=== PATIENT | female | born 1960 | race Caucasian/White ===

== ENCOUNTER 2018-05-01 21:54 | Inpatient (IN) | payer BC ==
[~2018-05-01] VITALS: Ht 152.4 cm; Wt 59.4 kg
[2018-05-01] MEDS ORDERED: SOD CHLORIDE 0.9% 500 ML IV STA (23:39)
--- NOTE | 2018-05-02 05:28 | ERD ---
ER Documentation Chief Complaint Chief Complaint OVARIAN CA PT. CHEMO 2 WEEKS AGO. ALTERED PER FAMILY HPI This is a 57-year-old female who comes in with complaints of alteration of mental status per family. Apparently the last 2 weeks she has been getting progressively more altered. Patient had chemo therapy for ovarian cancer. Today they found her in the ER and she had defecated herself and taken off her clothes. Patient herself cannot provide any relevant history. History is strictly per family at the bedside. ROS All systems reviewed and are negative except as per history of present illness. Allergies Allergies: Coded Allergies: No Known Allergy (Unverified , 05/02/18) PMhx/Soc History of Surgery: Yes (thyroidectomy) Hx Cardiac Disorders: Yes (HTN) Hx Miscellaneous Medical Probl: Yes (DM, ovarian CA) Hx Alcohol Use: No Hx Substance Use: No Hx Tobacco Use: No Smoking Status: Never smoker Physical Exam Vitals Vital Signs Date Temp Pulse Resp B/P (MAP) Pulse Ox O2 O2 Flow FiO2 Time Delivery Rate 05/02/18 112 19 155/117 99 Room Air 04:40 (130) 05/02/18 100 19 157/76 99 Room Air 03:30 (103) 05/02/18 89 13 151/75 100 Room Air 00:56 (100) 05/02/18 Nasal 2 00:46 Cannula 05/02/18 97.5 97 14 149/73 97 Room Air 00:29 (98) 05/01/18 158/74 23:21 (102) 05/01/18 99.0 96 18 189/80 100 22:00 (116) Physical Exam Const: No acute distress Head: Atraumatic Eyes: Normal Conjunctiva ENT: Normal External Ears, Nose and Mouth. Neck: Full range of motion. No meningismus. Resp: Clear to auscultation bilaterally Cardio: Regular rate and rhythm, no murmurs Abd: Soft, non tender, non distended. Normal bowel sounds Skin: No petechiae or rashes Back: No midline or flank tenderness Ext: No cyanosis, or edema Neur: Awake and alert Psych: Normal Mood and Affect Result Diagram: 05/01/18 1714 05/01/18 2568 Results 24 hrs Laboratory Tests Test 05/01/18 23:21 05/01/18 23:59 05/02/18 00:37 3/13/19 00:43 Bedside Glucose 105 mg/dL 104 mg/dL White Blood Count 4.9 10^3/ul Red Blood Count 3.41 10^6/ul Hemoglobin 9.4 g/dl Hematocrit 30.0 % Mean Corpuscular 88.0 fl Volume Mean Corpuscular 27.6 pg Hemoglobin Mean Corpuscular 31.3 g/dl Hemoglobin Concent Red Cell 16.1 % Distribution Width Platelet Count 131 10^3/UL Mean Platelet 9.2 fl Volume Immature 0.400 % Granulocytes % Neutrophils % 67.8 % Lymphocytes % 8.6 % Monocytes % 18.5 % Eosinophils % 3.9 % Basophils % 0.8 % Nucleated Red 0.0 /100WBC Blood Cells % Immature 0.020 10^3/ul Granulocytes # Neutrophils # 3.3 10^3/ul Lymphocytes # 0.4 10^3/ul Monocytes # 0.9 10^3/ul Eosinophils # 0.2 10^3/ul Basophils # 0.0 10^3/ul Nucleated Red 0.0 10^3/ul Blood Cells # Urine Color YELLOW Urine Clarity CLEAR Urine pH 6.0 Urine Specific 1.016 [place] Urine Ketones TRACE mg/dL Urine Nitrite NEGATIVE mg/dL Urine Bilirubin NEGATIVE mg/dL Urine Urobilinogen 2+ mg/dL Urine Leukocyte NEGATIVE Katja/ul Esterase Urine Hemoglobin NEGATIVE mg/dL Urine Glucose 2+ mg/dL Urine Total NEGATIVE mg/dl Protein Sodium Level 144 mmol/L Potassium Level 3.9 mmol/L Chloride Level 111 mmol/L Carbon Dioxide 19 mmol/L Level Anion Gap 14 Blood Urea 20 mg/dl Nitrogen Creatinine 0.81 mg/dl Est Glomerular > 60 mL/min Filtrat Rate mL/min Glucose Level 112 mg/dl Calcium Level 9.6 mg/dl Total Bilirubin 0.8 mg/dl Direct Bilirubin 0.00 mg/dl Indirect Bilirubin 0.8 mg/dl Aspartate Amino 34 IU/L Transf (AST/SGOT) Alanine 27 IU/L Aminotransferase ( ALT/SGPT) Alkaline 298 IU/L Phosphatase Troponin I < 0.012 ng/ml Total Protein 8.1 g/dl Albumin 4.1 g/dl Globulin 4.00 g/dl Albumin/Globulin 1.02 Ratio Salicylates Level < 1.0 mg/dl Urine Opiates Negative Screen Acetaminophen < 10.0 ug/ml Level Urine Barbiturates Negative Urine Amphetamines Negative Screen Urine Negative Benzodiazepines Screen Urine Cocaine Negative Screen Urine Cannabinoids Negative Ethyl Alcohol < 10.0 mg/dl Level POC Venous Lactate 2.3 mmol/L Test 05/02/18 03:23 POC Venous Lactate 2.4 mmol/L Current Medications Medications Dose Sig/Sant[place] Start Time Status Last (Trade) Ordered Route PRN Stop Time Admin Dose Reason Admin Sodium 500 ml @ Q1H STAT 05/01/18 DC 05/02/18 Chloride 500 mls/hr IV 23:39 00:19 05/02/18 00:38 IV Flush 3 ml PER 05/02/18 (NS 3 ml) PROTOCOL IV 05:30 Ondansetron 4 mg Q6H PRN 05/02/18 HCl (Zofran IV 05:30 Inj) NAUSEA/VOMITI NG 650 mg Q6H PRN 05/02/18 Acetaminophen PO .PAIN 1-3 05:30 (Tylenol OR TEMP Tab) Heparin 5,000 unit Q12 SC 05/02/18 Sodium 09:00 (Porcine) (Heparin (5000 Units/1ml)) Albuterol/ 3 ml Q2H RESP 05/02/18 Ipratropium THERAPY PRN 05:30 (Duoneb) HHN SHORTNESS OF BREATH Procedures/MDM Emergency department course: Patient seen and evaluated triage nurse. Placed in bed from evaluation. Placed on continuous cardiac monitoring. Had a stat altered mental status workup. Serial examinations in the ER remained stable. Diagnostic data: EKG: Rate/Rhythm: [Normal Sinus Rhythm] QRS, ST, T-waves: [No changes consistent w/ acute ischemia] Impression: [No evidence of ischemia or arrhythmia] Chest X-ray 1V Interpreted by me: Soft Tissue: No acute abnormali ties Bones: No acute abnormalities Mediastinum/Cardiac Silhouette/Lungs: [No acute abnormalities] Rhythm strip: Rate/Rhythm: Normal Sinus Rhythm Impression: No evidence of ischemia or arrhythmia CT of the head read as negative by the radiologist. Please see full dictation full report Medical decision making: This a 57-year-old female with acute alteration in mental status that is really more subacute and progressive over the past 2 weeks . No evidence of intracranial abnormality. This is likely secondary to toxic encephalopathy possibly from chemotherapy. Patient will be admitted to telemetric setting for further evaluation and management to hospitalist physician Departure Diagnosis: Primary Impression: Altered level of consciousness Condition: Serious JOSEPHINE SALEH May 02, 2018 05:28
[2018-05-02] MEDS ORDERED: ALBUTEROL/IPRATROPIUM (NEB) 3 ML AMP HHN PRN (05:30)
[2018-05-02] MEDS ORDERED: ONDANSETRON 4 MG INJ IV PRN (05:30)
[2018-05-02] MEDS ORDERED: NACL 0.9% 3 ML SYG IV SCH (05:30)
[2018-05-02] MEDS ORDERED: ACETAMINOPHEN 325 MG TAB PO PRN (05:30)
--- NOTE | 2018-05-02 07:10 | HP ---
Date/Time of Note Date/Time of Note DATE: 05/02/18 TIME: 07:05 Assessment/Plan VTE Prophylaxis Pharmacological prophylaxis: heparin Lines/Catheters IV Catheter Type (from Nrsg): Peripheral IV Assessment/Plan Assessment/Plan 1. Altered mentation: Likely toxic metabolic -Head CT negative for acute findings. will follow this up with MRI of the brain 2. Hypertension: BP not at goal. Adjust BP meds as needed 3. Mild hyponatremia: Likely from dehydration -Check urine lites and osmolality -NS IVF for now 4. Bicytopenia, with anemia and mild thrombocytopenia: Likely related to chemo and malignancy -Monitor for now 5. Diabetes: Check A1c. Insulin while in-house Result Diagram: 05/01/18 2359 05/01/18 2359 Results 24hrs Laboratory Tests Test 05/01/18 23:21 05/01/18 23:59 05/02/18 00:37 05/02/18 00:43 Bedside Glucose 105 104 White Blood Count 4.9 Red Blood Count 3.41 L Hemoglobin 9.4 L Hematocrit 30.0 L Mean Corpuscular 88.0 Volume Mean Corpuscular 27.6 L Hemoglobin Mean Corpuscular 31.3 L Hemoglobin Concent Red Cell 16.1 H Distribution Width Platelet Count 131 L Mean Platelet Volume 9.2 Immature 0.400 Granulocytes % Neutrophils % 67.8 Lymphocytes % 8.6 L Monocytes % 18.5 H Eosinophils % 3.9 Basophils % 0.8 Nucleated Red Blood 0.0 Cells % Immature 0.020 Granulocytes # Neutrophils # 3.3 Lymphocytes # 0.4 L Monocytes # 0.9 Eosinophils # 0.2 Basophils # 0.0 Nucleated Red Blood 0.0 Cells # Urine Color YELLOW Urine Clarity CLEAR Urine pH 6.0 Urine Specific 1.016 [place] Urine Ketones TRACE A Urine Nitrite NEGATIVE Urine Bilirubin NEGATIVE Urine Urobilinogen 2+ H Urine Leukocyte NEGATIVE Esterase Urine Hemoglobin NEGATIVE Urine Glucose 2+ H Urine Total Protein NEGATIVE Sodium Level 144 Potassium Level 3.9 Chloride Level 111 H Carbon Dioxide Level 19 L Anion Gap 14 H Blood Urea Nitrogen 20 Creatinine 0.81 Est Glomerular > 60 Filtrat Rate mL/min Glucose Level 112 Calcium Level 9.6 Total Bilirubin 0.8 Direct Bilirubin 0.00 Indirect Bilirubin 0.8 Aspartate Amino 34 Transf (AST/SGOT) Alanine 27 Aminotransferase (AL T/SGPT) Alkaline Phosphatase 298 H Troponin I < 0.012 Total Protein 8.1 Albumin 4.1 Globulin 4.00 H Albumin/Globulin 1.02 Ratio Salicylates Level < 1.0 L Urine Opiates Screen Negative Acetaminophen Level < 10.0 L Urine Barbiturates Negative Urine Amphetamines Negative Screen Urine Negative Benzodiazepines Screen Urine Cocaine Screen Negative Urine Cannabinoids Negative Ethyl Alcohol Level < 10.0 H POC Venous Lactate 2.3 *H Test 05/02/18 03:23 05/02/18 06:10 POC Venous Lactate 2.4 *H Lactic Acid Level 2.7 *H HPI/ROS Admit Date/Time Admit Date/Time Hx of Present Illness This is a 57-year-old female with a history of hypertension, diabetes, thyroidectomy, ovarian cancer on chemo who was brought to the ER for altered mentation. This has been progressively getting worse. Patient has been forgetful and confused. Patient has been attempting to answer questions, but appears to be slow. For the most part she has been answering question by saying "a little bit". Denied head injury or recent fall. No headache. Plan presents the ER, BP was 189/[address] without acute findings. . PMH/Family/Social Past Medical History Medical History: other (See HPI) Medications Current Medications IV Flush (NS 3 ml) 3 ml PER PROTOCOL IV ; Start 05/02/18 at 05:30 Ondansetron HCl (Zofran Inj) 4 mg Q6H PRN IV NAUSEA/VOMITING; Start 05/02/18 at 05:30 Acetaminophen (Tylenol Tab) 650 mg Q6H PRN PO .PAIN 1-3 OR TEMP; Start 05/02/18 at 05:30 Heparin Sodium (Porcine) (Heparin (5000 Units/1ml)) 5,000 unit Q12 SC ; Start 05/02/18 at 09:00 Albuterol/ Ipratropium (Duoneb) 3 ml Q2H RESP THERAPY PRN HHN SHORTNESS OF BREATH; Start 05/02/18 at 05:30 Coded Allergies: No Known Allergy (Unverified , 05/02/18) Past Surgical History Past Surgical Hx: other (See HPI) Family History Significant Family History: other (Unknown) Social History Alcohol Use: other (Unknown) Smoking Status: Unknown if ever smoked Drug Use: other (Unknown) Exam/Review of Systems Vital Signs Vitals Vital Signs Date Temp Pulse Resp B/P (MAP) Pulse Ox O2 O2 Flow FiO2 Time Delivery Rate 05/02/18 112 19 155/117 99 Room Air 04:40 (130) 05/02/18 2 00:46 05/02/18 97.5 00:29 Exam Constitutional: other (Patient appears slightly weak. She is not oriented) Head: normocephalic, atraumatic Eyes: PERRL Respiratory: clear to auscultation, normal air movement Cardiovascular: regular rate and rhythm, nl pulses Gastrointestinal: soft Extremities: normal pulses Neurological: confused JOSEPHINE GOVEA MD May 02, 2018 07:10
[2018-05-02] MEDS: HEPARIN 5,000 UNIT/1 ML VIAL SC SCH ×2 (09:39→21:11)
[2018-05-02 15:16] VITALS: Ht 152.4 cm; Wt 59.4 kg
[2018-05-02 15:24] VITALS: PULSE 100
[2018-05-02 15:59] VITALS: BP 158/76; PULSE 56; RESP 22
[2018-05-02 16:01] VITALS: PULSE 100
[2018-05-02] MEDS: SOD CHLORIDE 0.9% 1,000 ML IV SCH (16:04)
[2018-05-02] MEDS ORDERED: ATOR40TA68 PO (18:24)
[2018-05-02] MEDS ORDERED: METF500T24 PO (18:24)
[2018-05-02] MEDS ORDERED: SPIR25TA PO (18:24)
[2018-05-02] MEDS ORDERED: PANT40TA4 PO (18:24)
[2018-05-02] MEDS ORDERED: LEVO150T7 PO (18:24)
[2018-05-02] MEDS ORDERED: LORAZEPAM 1 MG TAB PO ONE (18:30)
[2018-05-02 20:00] VITALS: BP 178/91; PULSE 108; PULSE 110; RESP 20
[2018-05-02] MEDS ORDERED: LABETALOL HCL 20MG INJ IV ONE (21:00)
[2018-05-02 21:11] VITALS: BP 141/68; PULSE 98
[2018-05-03] VITALS (12 sets, daily range): BP systolic 128–143; BP diastolic 63–81; PULSE 76–98; RESP 16–22
[2018-05-03] MEDS: SOD CHLORIDE 0.9% 1,000 ML IV SCH ×2 (06:12→16:30)
[2018-05-03] MEDS: HEPARIN 5,000 UNIT/1 ML VIAL SC SCH ×2 (09:31→20:39)
--- NOTE | 2018-05-03 11:01 | CONS ---
Assessment/Plan Assessment/Plan Assessment/Plan (Daily) Luminary note chart reviewed patient examined altered mental status Preliminary head CT negative for acute findings Bicytopenia Fluid and electrolyte abnormalities History of ovarian cancer Comorbid medical problems include hypertension, diabetes, thyroidectomy, ovarian cancer on chemotherapy Encephalopathy Lethargy History obtained from friend at the bedside patient is currently asleep she had a bad night and did not sleep throughout the night. We have an incomplete database. Luminary laboratory tests are essentially unremarkable, lactic acid level 2.7. MRI of the brain is pending At this time is spoken to patient's friend at the bedside other family members are not available at any time tomorrow other than on the phone. I am trying to arrange that to get a better database on patient, goals of care Consultation Date/Type/Reason Admit Date/Time Date/Time of Note DATE: 05/03/18 TIME: 11:00 Past Medical History Medical History: other (See HPI) Home Meds Reported Medications Atorvastatin* (Atorvastatin*) 40 Mg Tablet, 40 MG PO QHS, #30 TAB 05/02/18 Metformin Hcl* (Metformin Hcl*) 500 Mg Tablet, 500 MG PO WITH BREAKFAST DINNE, #60 TAB 05/02/18 Pantoprazole* (Pantoprazole*) 40 Mg Tablet.dr, 40 MG PO DAILY, TAB 05/02/18 Levothyroxine Sodium* (Levothyroxine Sodium*) 150 Mcg Tablet, 150 MCG PO BEFORE BREAKFAST, #30 TAB 05/02/18 Spironolactone* (Aldactone*) 25 Mg Tablet, 25 MG PO BID, #60 TAB 05/02/18 Medications Current Medications IV Flush (NS 3 ml) 3 ml PER PROTOCOL IV ; Start 05/02/18 at 05:30 Ondansetron HCl (Zofran Inj) 4 mg Q6H PRN IV NAUSEA/VOMITING; Start 05/02/18 at 05:30 Acetaminophen (Tylenol Tab) 650 mg Q6H PRN PO .PAIN 1-3 OR TEMP; Start 05/02/18 at 05:30 Heparin Sodium (Porcine) (Heparin (5000 Units/1ml)) 5,000 unit Q12 SC Last administered on 05/03/18at 09:31; Admin Dose 5,000 UNIT; Start 05/02/18 at 09:00 Albuterol/ Ipratropium (Duoneb) 3 ml Q2H RESP THERAPY PRN HHN SHORTNESS OF BREATH; Start 05/02/18 at 05:30 Sodium Chloride 1,000 ml @ 80 mls/hr [id number] IV Last administered on 05/03/18at 06:12; Admin Dose 80 MLS/HR; Start 05/02/18 at 15:30 Magnesium Sulfate 100 ml @ 25 mls/hr ONCE ONCE IVPB ; Start 05/03/18 at 12:00; Stop 05/03/18 at 15:59 Atorvastatin Calcium (Lipitor) 40 mg QHS PO ; Start 05/03/18 at 21:00 Levothyroxine Sodium (Synthroid) 150 mcg BEFORE BREAKFAST PO ; Start 05/04/18 at 07:00 Metoprolol Tartrate (Lopressor) 25 mg BID PO ; Start 05/03/18 at 10:00 Allergies: Coded Allergies: No Known Allergy (Unverified , 05/02/18) Past Surgical History Past Surgical Hx: other (See HPI) Social History Alcohol Use: other (Unknown) Smoking Status: Never smoker Drug Use: other (Unknown) Exam/Review of Systems Exam Vitals Vital Signs Date Temp Pulse Resp B/P (MAP) Pulse Ox O2 O2 Flow FiO2 Time Delivery Rate 05/03/18 89 08:04 05/03/18 97.6 22 143/81 96 Room Air 07:14 (101) 05/02/18 2 00:46 Intake and Output 05/02/18 05/02/18 05/03/18 1515:00 23:00 07:00 IntakeIntake Total 540 ml 1080 ml BalanceBalance 540 ml 1080 ml Results Result Diagram: 05/03/18 0500 05/03/18 0500 Results 24hrs Laboratory Tests Test 05/03/18 04:30 05/03/18 05:00 Lactic Acid Level 1.3 White Blood Count 3.9 #L Red Blood Count 2.98 L Hemoglobin 8.3 L Hematocrit 26.5 L Mean Corpuscular Volume 88.9 Mean Corpuscular Hemoglobin 27.9 L Mean Corpuscular Hemoglobin Concent 31.3 L Red Cell Distribution Width 16.2 H Platelet Count 108 L Mean Platelet Volume 9.1 Immature Granulocytes % 0.300 Neutrophils % 53.0 Lymphocytes % 16.7 Monocytes % 22.8 H Eosinophils % 5.9 Basophils % 1.3 Nucleated Red Blood Cells % 0.0 Immature Granulocytes # 0.010 Neutrophils # 2.1 Lymphocytes # 0.7 L Monocytes # 0.9 Eosinophils # 0.2 Basophils # 0.1 Nucleated Red Blood Cells # 0.0 Sodium Level 141 Potassium Level 3.6 Chloride Level 114 H Carbon Dioxide Level 19 L Anion Gap 8 Blood Urea Nitrogen 15 Creatinine 0.75 Est Glomerular Filtrat Rate mL/min > 60 Glucose Level 113 Hemoglobin A1c 6.7 H Calcium Level 8.7 Magnesium Level 1.1 L Total Bilirubin 0.8 Direct Bilirubin 0.00 Indirect Bilirubin 0.8 Aspartate Amino Transf (AST/SGOT) 34 Alanine Aminotransferase (ALT/SGPT) 36 Alkaline Phosphatase 281 H Total Protein 6.7 # Albumin 3.2 L Globulin 3.50 H Albumin/Globulin Ratio 0.91 Triglycerides Level 100 Cholesterol Level 156 LDL Cholesterol, Calculated 84 HDL Cholesterol 52 Cholesterol/HDL Ratio 3.0 Thyroid Stimulating Hormone (TSH) 0.588 Medications Medication Current Medications IV Flush (NS 3 ml) 3 ml PER PROTOCOL IV ; Start 05/02/18 at 05:30 Ondansetron HCl (Zofran Inj) 4 mg Q6H PRN IV NAUSEA/VOMITING; Start 05/02/18 at 05:30 Acetaminophen (Tylenol Tab) 650 mg Q6H PRN PO .PAIN 1-3 OR TEMP; Start 05/02/18 at 05:30 Heparin Sodium (Porcine) (Heparin (5000 Units/1ml)) 5,000 unit Q12 SC Last administered on 05/03/18at 09:31; Admin Dose 5,000 UNIT; Start 05/02/18 at 09:00 Albuterol/ Ipratropium (Duoneb) 3 ml Q2H RESP THERAPY PRN HHN SHORTNESS OF BREATH; Start 05/02/18 at 05:30 Sodium Chloride 1,000 ml @ 80 mls/hr [id number] IV Last administered on 05/03/18at 06:12; Admin Dose 80 MLS/HR; Start 05/02/18 at 15:30 Magnesium Sulfate 100 ml @ 25 mls/hr ONCE ONCE IVPB ; Start 05/03/18 at 12:00; Stop 05/03/18 at 15:59 Atorvastatin Calcium (Lipitor) 40 mg QHS PO ; Start 05/03/18 at 21:00 Levothyroxine Sodium (Synthroid) 150 mcg BEFORE BREAKFAST PO ; Start 05/04/18 at 07:00 Metoprolol Tartrate (Lopressor) 25 mg BID PO ; Start 05/03/18 at 10:00 JITENDRA DWYER May 03, 2018 11:01
[2018-05-03] MEDS: METOPROLOL 25 MG TAB PO SCH ×2 (11:06→20:31)
[2018-05-03] MEDS ORDERED: LORAZEPAM 2 MG INJ IV PRN (11:30)
[2018-05-03] MEDS ORDERED: MAGNESIUM SULFATE 4 GM/100 ML 100 ML IVPB ONE (12:00)
--- NOTE | 2018-05-03 13:04 | PN ---
Date/Time of Note Date/Time of Note DATE: 05/03/18 TIME: 13:01 Assessment/Plan VTE Prophylaxis Risk score (from Nsg)>0 risk: 4 Pharmacological prophylaxis: heparin Lines/Catheters IV Catheter Type (from Nrsg): port a cath Urinary Cath still in place: No Assessment/Plan Hospital Course S: was sleeping, family requested not to wake her, family states mentation and confusion is slightly better, tachycardia overnight, improved with iv labetalol General: sleeping comfortably CVS: S1, S2, RRR. no murmurs. Lungs: CTA b/l. no wheezing or rhonchi Ext: no edema on visual exam assesment and plan: 1. confusion: -acute ?, chronicity is unclear, family member at bedside cannot say for cert ain, patient seemed worse than baseline on arrival however per her -she says patient is somewhat improved now -2/2 dehydration (toxic metabolic?) versus new brain mets? -on prior assessment, patient could not remember her birthday or the hospital where she gets her chemo. She also couldn't remember how long she had had cancer, but she remembered the name of her oncologist -f/u MRI findings, further interventions after review, may need short term steroid therapy versus brain radiation if appropriate 2. Recurrent Ovarian Ca -was able to speak with assistant softball coach to o/p oncologist Hugh Barnes MD . Patient managed for recurrent ovarian ca and has been their patient since before 2014. 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 -she will be faxing over last progress note 3. Mild lactic acidosis : -likely 2/2 dehydration, resolved with fluid therapy only, no septic source noted. 4. Hypomagnesemia : replete 5. preDM: a1c 6.5 6. HTN: start low dose BB and titrate as indicated 7. transient tachycardia hypercoagulable, r/o thrombosis Result Diagram: 05/03/18 0500 05/03/18 0500 Results 24hrs Laboratory Tests Test 05/03/18 04:30 05/03/18 05:00 Lactic Acid Level 1.3 White Blood Count 3.9 #L Red Blood Count 2.98 L Hemoglobin 8.3 L Hematocrit 26.5 L Mean Corpuscular Volume 88.9 Mean Corpuscular Hemoglobin 27.9 L Mean Corpuscular Hemoglobin Concent 31.3 L Red Cell Distribution Width 16.2 H Platelet Count 108 L Mean Platelet Volume 9.1 Immature Granulocytes % 0.300 Neutrophils % 53.0 Lymphocytes % 16.7 Monocytes % 22.8 H Eosinophils % 5.9 Basophils % 1.3 Nucleated Red Blood Cells % 0.0 Immature Granulocytes # 0.010 Neutrophils # 2.1 Lymphocytes # 0.7 L Monocytes # 0.9 Eosinophils # 0.2 Basophils # 0.1 Nucleated Red Blood Cells # 0.0 Sodium Level 141 Potassium Level 3.6 Chloride Level 114 H Carbon Dioxide Level 19 L Anion Gap 8 Blood Urea Nitrogen 15 Creatinine 0.75 Est Glomerular Filtrat Rate mL/min > 60 Glucose Level 113 Hemoglobin A1c 6.7 H Calcium Level 8.7 Magnesium Level 1.1 L Total Bilirubin 0.8 Direct Bilirubin 0.00 Indirect Bilirubin 0.8 Aspartate Amino Transf (AST/SGOT) 34 Alanine Aminotransferase (ALT/SGPT) 36 Alkaline Phosphatase 281 H Total Protein 6.7 # Albumin 3.2 L Globulin 3.50 H Albumin/Globulin Ratio 0.91 Triglycerides Level 100 Cholesterol Level 156 LDL Cholesterol, Calculated 84 HDL Cholesterol 52 Cholesterol/HDL Ratio 3.0 Thyroid Stimulating Hormone (TSH) 0.588 Exam/Review of Systems Exam Vitals Vital Signs Date Temp Pulse Resp B/P (MAP) Pulse Ox O2 O2 Flow FiO2 Time Delivery Rate 05/03/18 87 12:12 05/03/18 97.8 22 128/66 11:07 (86) 05/03/18 96 Room Air 07:14 05/02/18 2 00:46 Intake and Output 05/02/18 05/02/18 05/03/18 1515:00 23:00 07:00 IntakeIntake Total 540 ml 1080 ml BalanceBalance 540 ml 1080 ml Results Results 24hrs Laboratory Tests Test 05/03/18 04:30 05/03/18 05:00 Lactic Acid Level 1.3 White Blood Count 3.9 #L Red Blood Count 2.98 L Hemoglobin 8.3 L Hematocrit 26.5 L Mean Corpuscular Volume 88.9 Mean Corpuscular Hemoglobin 27.9 L Mean Corpuscular Hemoglobin Concent 31.3 L Red Cell Distribution Width 16.2 H Platelet Count 108 L Mean Platelet Volume 9.1 Immature Granulocytes % 0.300 Neutrophils % 53.0 Lymphocytes % 16.7 Monocytes % 22.8 H Eosinophils % 5.9 Basophils % 1.3 Nucleated Red Blood Cells % 0.0 Immature Granulocytes # 0.010 Neutrophils # 2.1 Lymphocytes # 0.7 L Monocytes # 0.9 Eosinophils # 0.2 Basophils # 0.1 Nucleated Red Blood Cells # 0.0 Sodium Level 141 Potassium Level 3.6 Chloride Level 114 H Carbon Dioxide Level 19 L Anion Gap 8 Blood Urea Nitrogen 15 Creatinine 0.75 Est Glomerular Filtrat Rate mL/min > 60 Glucose Level 113 Hemoglobin A1c 6.7 H Calcium Level 8.7 Magnesium Level 1.1 L Total Bilirubin 0.8 Direct Bilirubin 0.00 Indirect Bilirubin 0.8 Aspartate Amino Transf (AST/SGOT) 34 Alanine Aminotransferase (ALT/SGPT) 36 Alkaline Phosphatase 281 H Total Protein 6.7 # Albumin 3.2 L Globulin 3.50 H Albumin/Globulin Ratio 0.91 Triglycerides Level 100 Cholesterol Level 156 LDL Cholesterol, Calculated 84 HDL Cholesterol 52 Cholesterol/HDL Ratio 3.0 Thyroid Stimulating Hormone (TSH) 0.588 Medications Medication Current Medications IV Flush (NS 3 ml) 3 ml PER PROTOCOL IV ; Start 05/02/18 at 05:30 Ondansetron HCl (Zofran Inj) 4 mg Q6H PRN IV NAUSEA/VOMITING; Start 05/02/18 at 05:30 Acetaminophen (Tylenol Tab) 650 mg Q6H PRN PO .PAIN 1-3 OR TEMP; Start 05/02/18 at 05:30 Heparin Sodium (Porcine) (Heparin (5000 Units/1ml)) 5,000 unit Q12 SC Last administered on 05/03/18at 09:31; Admin Dose 5,000 UNIT; Start 05/02/18 at 09:00 Albuterol/ Ipratropium (Duoneb) 3 ml Q2H RESP THERAPY PRN HHN SHORTNESS OF BREATH; Start 05/02/18 at 05:30 Sodium Chloride 1,000 ml @ 80 mls/hr [id number] IV Last administered on 05/03/18at 06:12; Admin Dose 80 MLS/HR; Start 05/02/18 at 15:30 Magnesium Sulfate 100 ml @ 25 mls/hr ONCE ONCE IVPB Last administered on 05/03/18at 12:36; Admin Dose 25 MLS/HR; Start 05/03/18 at 12:00; Stop 05/03/18 at 15:59 Atorvastatin Calcium (Lipitor) 40 mg QHS PO ; Start 05/03/18 at 21:00 Levothyroxine Sodium (Synthroid) 150 mcg BEFORE BREAKFAST PO ; Start 05/04/18 at 07:00 Metoprolol Tartrate (Lopressor) 25 mg BID PO Last administered on 05/03/18at 11:06; Admin Dose 25 MG; Start 05/03/18 at 10:00 Lorazepam (Ativan) 1 mg ONCE PRN IV claustrophobia for MRI; Start 05/03/18 at 11:30; Stop 05/04/18 at 11:29 NAGA PEREZ May 03, 2018 13:04
--- NOTE | 2018-05-03 16:56 | CONS ---
Assessment/Plan Assessment/Plan Hospital Course 57 F c/ Hx of ovarian Ca, on chemo...who presents for evaluation of progressive ams x >1 mo...for which neurology is consulted.. Stroke is not yet excluded.. An acute toxic-metabolic encephalopathy is considered.. Encephalitis is less likely.. Chemotherapy-related neurotoxicity is a Dx of exclusion.. Head CT is unrevealing. Lactate was elevated on presentation UA neg UDS neg TSH wnl CXR is unrevealing P: Await MRI brain for further characterization Add B1, B12, ammonia levels [place] as necessary Limit sedating medications where possible PT/OT/ST as necessary Consider EEG should her mental status begin to noticeably fluctuate Will follow clinically Consultation Date/Type/Reason Admit Date/Time Type of Consult Neurology Reason for Consultation ams Requesting Provider: NAGA PEREZ Date/Time of Note DATE: 05/03/18 TIME: 16:50 Hx of Present Illness Patient is unable to contribute a Hx.. It is elsewhere noted: This is a 57-year-old female with a history of hypertension, diabetes, thyroidectomy, ovarian cancer on chemo who was brought to the ER for altered mentation. This has been progressively getting worse. Patient has been forgetful and confused. Patient has been attempting to answer questions, but appears to be slow. For the most part she has been answering question by saying "a little bit". Denied head injury or recent fall. No headache. Plan presents the ER, BP was 189/[address] without acute findings. Subjective hx not possible: pt non-verbal Exam/Review of Systems Exam Vitals Vital Signs Date Temp Pulse Resp B/P (MAP) Pulse Ox O2 O2 Flow FiO2 Time Delivery Rate 05/03/18 77 16:01 05/03/18 98.0 22 132/66 96 15:43 (88) 05/03/18 Room Air 07:14 05/02/18 2 00:46 Intake and Output 05/02/18 05/02/18 05/03/18 1515:00 23:00 07:00 IntakeIntake Total 540 ml 1080 ml BalanceBalance 540 ml 1080 ml Exam PE: Gen Appearance: No Apparent Distress HEENT: Normocephalic Cardiovascular: Regular rate Abdomen: Soft Extremities: Dry NE: The patient was lethargic and nonverbal. Cranial nerve examination was limited by mental status. Pupils were equal and reactive to light. There was no afferent pupillary defect. Funduscopic examination was limited. Face was grossly symmetric, w/ present corneal and cough reflexes. Tone was normal. Muscle bulk was normal. I did not see fasciculations. The patient withdrew to noxious stimulation x 4. Coordination and gait testing was limited by mental status. Arm and leg reflexes were within normal limits and symmetric. Ivan's sign was absent. Plantar responses were flexor. Results Result Diagram: 05/03/18 0500 05/03/18 0500 Results 24hrs Laboratory Tests Test 05/03/18 04:30 05/03/18 05:00 Lactic Acid Level 1.3 White Blood Count 3.9 #L Red Blood Count 2.98 L Hemoglobin 8.3 L Hematocrit 26.5 L Mean Corpuscular Volume 88.9 Mean Corpuscular Hemoglobin 27.9 L Mean Corpuscular Hemoglobin Concent 31.3 L Red Cell Distribution Width 16.2 H Platelet Count 108 L Mean Platelet Volume 9.1 Immature Granulocytes % 0.300 Neutrophils % 53.0 Lymphocytes % 16.7 Monocytes % 22.8 H Eosinophils % 5.9 Basophils % 1.3 Nucleated Red Blood Cells % 0.0 Immature Granulocytes # 0.010 Neutrophils # 2.1 Lymphocytes # 0.7 L Monocytes # 0.9 Eosinophils # 0.2 Basophils # 0.1 Nucleated Red Blood Cells # 0.0 Sodium Level 141 Potassium Level 3.6 Chloride Level 114 H Carbon Dioxide Level 19 L Anion Gap 8 Blood Urea Nitrogen 15 Creatinine 0.75 Est Glomerular Filtrat Rate mL/min > 60 Glucose Level 113 Hemoglobin A1c 6.7 H Calcium Level 8.7 Magnesium Level 1.1 L Total Bilirubin 0.8 Direct Bilirubin 0.00 Indirect Bilirubin 0.8 Aspartate Amino Transf (AST/SGOT) 34 Alanine Aminotransferase (ALT/SGPT) 36 Alkaline Phosphatase 281 H Total Protein 6.7 # Albumin 3.2 L Globulin 3.50 H Albumin/Globulin Ratio 0.91 Triglycerides Level 100 Cholesterol Level 156 LDL Cholesterol, Calculated 84 HDL Cholesterol 52 Cholesterol/HDL Ratio 3.0 Thyroid Stimulating Hormone (TSH) 0.588 Medications Medication Current Medications IV Flush (NS 3 ml) 3 ml PER PROTOCOL IV ; Start 05/02/18 at 05:30 Ondansetron HCl (Zofran Inj) 4 mg Q6H PRN IV NAUSEA/VOMITING; Start 05/02/18 at 05:30 Acetaminophen (Tylenol Tab) 650 mg Q6H PRN PO .PAIN 1-3 OR TEMP; Start 05/02/18 at 05:30 Heparin Sodium (Porcine) (Heparin (5000 Units/1ml)) 5,000 unit Q12 SC Last administered on 05/03/18at 09:31; Admin Dose 5,000 UNIT; Start 05/02/18 at 09:00 Albuterol/ Ipratropium (Duoneb) 3 ml Q2H RESP THERAPY PRN HHN SHORTNESS OF BREATH; Start 05/02/18 at 05:30 Sodium Chloride 1,000 ml @ 80 mls/hr [id number] IV Last administered on 05/03/18at 06:12; Admin Dose 80 MLS/HR; Start 05/02/18 at 15:30 Atorvastatin Calcium (Lipitor) 40 mg QHS PO ; Start 05/03/18 at 21:00 Levothyroxine Sodium (Synthroid) 150 mcg BEFORE BREAKFAST PO ; Start 05/04/18 at 07:00 Metoprolol Tartrate (Lopressor) 25 mg BID PO Last administered on 05/03/18at 11:06; Admin Dose 25 MG; Start 05/03/18 at 10:00 Past Medical History reviewed Medical History: other (See HPI) Home Meds Reported Medications Atorvastatin* (Atorvastatin*) 40 Mg Tablet, 40 MG PO QHS, #30 TAB 05/02/18 Metformin Hcl* (Metformin Hcl*) 500 Mg Tablet, 500 MG PO WITH BREAKFAST DINNE, #60 TAB 05/02/18 Pantoprazole* (Pantoprazole*) 40 Mg Tablet.dr, 40 MG PO DAILY, TAB 05/02/18 Levothyroxine Sodium* (Levothyroxine Sodium*) 150 Mcg Tablet, 150 MCG PO BEFORE BREAKFAST, #30 TAB 05/02/18 Spironolactone* (Aldactone*) 25 Mg Tablet, 25 MG PO BID, #60 TAB 05/02/18 Medications Current Medications IV Flush (NS 3 ml) 3 ml PER PROTOCOL IV ; Start 05/02/18 at 05:30 Ondansetron HCl (Zofran Inj) 4 mg Q6H PRN IV NAUSEA/VOMITING; Start 05/02/18 at 05:30 Acetaminophen (Tylenol Tab) 650 mg Q6H PRN PO .PAIN 1-3 OR TEMP; Start 05/02/18 at 05:30 Heparin Sodium (Porcine) (Heparin (5000 Units/1ml)) 5,000 unit Q12 SC Last administered on 05/03/18at 09:31; Admin Dose 5,000 UNIT; Start 05/02/18 at 09:00 Albuterol/ Ipratropium (Duoneb) 3 ml Q2H RESP THERAPY PRN HHN SHORTNESS OF BREATH; Start 05/02/18 at 05:30 Sodium Chloride 1,000 ml @ 80 mls/hr [id number] IV Last administered on 05/03/18at 06:12; Admin Dose 80 MLS/HR; Start 05/02/18 at 15:30 Atorvastatin Calcium (Lipitor) 40 mg QHS PO ; Start 05/03/18 at 21:00 Levothyroxine Sodium (Synthroid) 150 mcg BEFORE BREAKFAST PO ; Start 05/04/18 at 07:00 Metoprolol Tartrate (Lopressor) 25 mg BID PO Last administered on 05/03/18at 11:06; Admin Dose 25 MG; Start 05/03/18 at 10:00 Allergies: Coded Allergies: No Known Allergy (Unverified , 05/02/18) Past Surgical History reviewed Past Surgical Hx: other (See HPI) Family History Significant Family History: no pertinent family hx Social History Alcohol Use: other (Unknown) Smoking Status: Never smoker Drug Use: other (Unknown) TOM RANDOLPH May 03, 2018 16:56
[2018-05-03] MEDS ORDERED: ATORVASTATIN 40 MG TAB PO SCH (21:00)
[2018-05-04] VITALS (9 sets, daily range): BP systolic 120–140; BP diastolic 56–66; PULSE 65–75; RESP 16–18
[2018-05-04] MEDS: SOD CHLORIDE 0.9% 1,000 ML IV SCH ×2 (05:00→17:30)
[2018-05-04] MEDS ORDERED: LEVOTHYROXINE 150 MCG TAB PO SCH (07:00)
--- NOTE | 2018-05-04 07:40 | CONS ---
Assessment/Plan Assessment/Plan Assessment/Plan (Daily) Reviewed medical notes from Dr. Perez spoke to family member at the bedside this morning. Overall clinical status has been improved and her mental status is improved per family members. Unclear etiology but patient has had a recent episode of chemotherapy. 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 Last chemotherapy was done March 2018. Fluid and electrolyte abnormalities have essentially been. Now that she is stable may be consideration of patient being transferred to her own doctors at [facility] might be considered now by hospitalist. There are no pain and symptom management issues to be addressed at this time. Family members to arrive at the hospital today at 08 30 I will update them insofar as patient's current medical condition which once again has improved. Consultation Date/Type/Reason Admit Date/Time May 02, 2018 at 03:01 Initial Consult Date Requesting Provider: NAGA PEREZ Date/Time of Note DATE: 05/04/18 TIME: 07:38 Exam/Review of Systems Exam Vitals Vital Signs Date Temp Pulse Resp B/P (MAP) Pulse Ox O2 O2 Flow FiO2 Time Delivery Rate 05/04/18 98.6 72 16 124/60 97 07:15 (81) 05/03/18 Room Air 07:14 05/02/18 2 00:46 Intake and Output 05/03/18 05/03/18 05/04/18 1515:00 23:00 07:00 IntakeIntake Total 1220 ml 180 ml BalanceBalance 1220 ml 180 ml Constitutional: No alert, No oriented, No well developed, No non-verbal, No distress, No frail, No obese, No other Respiratory: clear to auscultation, normal air movement; No congested cough, No crackles/rales, No diminished breath sounds, No int ercostal retraction, No labored breathing, No respirations, No tactile fremitus, No wheezing, No other Neurological: lethargic Results Result Diagram: 05/04/18 0505 05/03/18 0500 Results 24hrs Laboratory Tests Test 05/03/18 17:12 05/03/18 19:06 05/04/18 05:05 Ammonia 51 H Vitamin B12 Level 636 D-Dimer 3303.68 H D-Dimer Comment White Blood Count 5.0 # Red Blood Count 2.96 L Hemoglobin 8.2 L Hematocrit 26.4 L Mean Corpuscular Volume 89.2 Mean Corpuscular Hemoglobin 27.7 L Mean Corpuscular Hemoglobin Concent 31.1 L Red Cell Distribution Width 16.3 H Platelet Count 116 L Mean Platelet Volume 9.5 Immature Granulocytes % 0.200 Neutrophils % 53.0 Lymphocytes % 12.9 L Monocytes % 24.1 H Eosinophils % 8.2 H Basophils % 1.6 Nucleated Red Blood Cells % 0.0 Immature Granulocytes # 0.010 Neutrophils # 2.6 Lymphocytes # 0.6 L Monocytes # 1.2 H Eosinophils # 0.4 Basophils # 0.1 Nucleated Red Blood Cells # 0.0 Lactic Acid Level 1.9 Medications Medication Current Medications IV Flush (NS 3 ml) 3 ml PER PROTOCOL IV ; Start 05/02/18 at 05:30 Ondansetron HCl (Zofran Inj) 4 mg Q6H PRN IV NAUSEA/VOMITING; Start 05/02/18 at 05:30 Acetaminophen (Tylenol Tab) 650 mg Q6H PRN PO .PAIN 1-3 OR TEMP; Start 05/02/18 at 05:30 Heparin Sodium (Porcine) (Heparin (5000 Units/1ml)) 5,000 unit Q12 SC Last administered on 05/03/18at 20:39; Admin Dose 5,000 UNIT; Start 05/02/18 at 09:00 Albuterol/ Ipratropium (Duoneb) 3 ml Q2H RESP THERAPY PRN HHN SHORTNESS OF BREATH; Start 05/02/18 at 05:30 Sodium Chloride 1,000 ml @ 80 mls/hr [id number] IV Last administered on 05/03/18 06:12; Admin Dose 80 MLS/HR; Start 05/02/18 at 15:30 Atorvastatin Calcium (Lipitor) 40 mg QHS PO Last administered on 05/03/18 20:30; Admin Dose 40 MG; Start 05/03/18 at 21:00 Levothyroxine Sodium (Synthroid) 150 mcg BEFORE BREAKFAST PO Last administered on 05/04/18 06:33; Admin Dose 150 MCG; Start 05/04/18 at 07:00 Metoprolol Tartrate (Lopressor) 25 mg BID PO Last administered on 05/03/18 20:31; Admin Dose 25 MG; Start 05/03/18 at 10:00 Lactulose (Enulose) 20 gm Q8 PO ; Start 05/04/18 at 07:00 JITENDRA DWYER May 04, 2018 07:40
[2018-05-04] MEDS: LACTULOSE 30ML CUP PO SCH ×2 (09:09→16:30)
[2018-05-04] MEDS: METOPROLOL 25 MG TAB PO SCH (09:10)
[2018-05-04] MEDS: HEPARIN 5,000 UNIT/1 ML VIAL SC SCH (09:16)
[2018-05-04] MEDS ORDERED: SOD CHLORIDE 0.9% 100 ML ONE (11:17)
[2018-05-04] MEDS ORDERED: IOHEXOL 100 ML ONE (11:17)
--- NOTE | 2018-05-04 14:09 | PN ---
Date/Time of Note Date/Time of Note DATE: 05/04/18 TIME: 14:06 Assessment/Plan VTE Prophylaxis Risk score (from Ns)>0 risk: 5 SCD applied (from Ns): Yes Pharmacological prophylaxis: heparin Lines/Catheters IV [facility] PORT A CATH Urinary Cath still in place: No Assessment/Plan Hospital Course assessment and plan 1. confusion: acute encephalopathy, hepatic ? resolved, abck to baseline. 2. Recurrent Ovarian Ca -was able to speak with assistant branch operations manager to o/p oncologist Hugh Barnes MD . Patient managed for recurrent ovarian ca and has been their patient since before 2014. 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 -she will be faxing over last progress note 3. Mild lactic acidosis : -likely 2/2 dehydration, resolved with fluid therapy only, no septic source noted. -elevated d dimer, f/u CT to r/o thrombus 4. Hypomagnesemia : replete 5. preDM: a1c 6.5 6. HTN: start low dose BB and titrate as indicated 7. transient tachycardia hypercoagulable, r/o thrombosis Dispo: DC home if CT normal. Result Diagram: 05/04/18 0505 05/04/18 0505 Results 24hrs Laboratory Tests Test 05/03/18 17:12 05/03/18 19:06 05/04/18 05:05 Ammonia 51 H Vitamin B12 Level 636 D-Dimer 3303.68 H D-Dimer Comment White Blood Count 5.0 # Red Blood Count 2.96 L Hemoglobin 8.2 L Hematocrit 26.4 L Mean Corpuscular Volume 89.2 Mean Corpuscular Hemoglobin 27.7 L Mean Corpuscular Hemoglobin Concent 31.1 L Red Cell Distribution Width 16.3 H Platelet Count 116 L Mean Platelet Volume 9.5 Immature Granulocytes % 0.200 Neutrophils % 53.0 Lymphocytes % 12.9 L Monocytes % 24.1 H Eosinophils % 8.2 H Basophils % 1.6 Nucleated Red Blood Cells % 0.0 Immature Granulocytes # 0.010 Neutrophils # 2.6 Lymphocytes # 0.6 L Monocytes # 1.2 H Eosinophils # 0.4 Basophils # 0.1 Nucleated Red Blood Cells # 0.0 Sodium Level 136 Potassium Level 3.8 Chloride Level 110 Carbon Dioxide Level 19 L Anion Gap 7 Blood Urea Nitrogen 11 Creatinine 0.68 Est Glomerular Filtrat Rate mL/min > 60 Glucose Level 194 Lactic Acid Level 1.9 Calcium Level 8.6 Phosphorus Level 3.2 Magnesium Level 2.2 # Subjective 24 Hr Interval Summary Free Text/Dictation alert, much more oriented than upon admission we reviewed labs and findings PT notes also reviewed Exam/Review of Systems Exam Vitals Vital Signs Date Temp Pulse Resp B/P (MAP) Pulse Ox O2 O2 Flow FiO2 Time Delivery Rate 05/04/18 98.4 73 18 121/59 96 12:30 (79) 05/03/18 Room Air 07:14 05/02/18 2 00:46 Intake and Output 05/03/18 05/03/18 05/04/18 1515:00 23:00 07:00 IntakeIntake Total 1220 ml 180 ml BalanceBalance 1220 ml 180 ml Constitutional: alert, oriented, frail Head: normocephalic Eyes: PERRL Neck: supple Respiratory: clear to auscultation Cardiovascular: regular rate and rhythm Gastrointestinal: soft, non-tender, bowel sounds Extremities: No edema Neurological: nl mental status, nl speech; No confused, No focal weakness Results Results 24hrs Laboratory Tests Test 05/03/18 17:12 05/03/18 19:06 05/04/18 05:05 Ammonia 51 H Vitamin B12 Level 636 D-Dimer 3303.68 H D-Dimer Comment White Blood Count 5.0 # Red Blood Count 2.96 L Hemoglobin 8.2 L Hematocrit 26.4 L Mean Corpuscular Volume 89.2 Mean Corpuscular Hemoglobin 27.7 L Mean Corpuscular Hemoglobin Concent 31.1 L Red Cell Distribution Width 16.3 H Platelet Count 116 L Mean Platelet Volume 9.5 Immature Granulocytes % 0.200 Neutrophils % 53.0 Lymphocytes % 12.9 L Monocytes % 24.1 H Eosinophils % 8.2 H Basophils % 1.6 Nucleated Red Blood Cells % 0.0 Immature Granulocytes # 0.010 Neutrophils # 2.6 Lymphocytes # 0.6 L Monocytes # 1.2 H Eosinophils # 0.4 Basophils # 0.1 Nucleated Red Blood Cells # 0.0 Sodium Level 136 Potassium Level 3.8 Chloride Level 110 Carbon Dioxide Level 19 L Anion Gap 7 Blood Urea Nitrogen 11 Creatinine 0.68 Est Glomerular Filtrat Rate mL/min > 60 Glucose Level 194 Lactic Acid Level 1.9 Calcium Level 8.6 Phosphorus Level 3.2 Magnesium Level 2.2 # Imaging Imaging PROCEDURE: Ultrasound of the bilateral lower extremity venous system. CLINICAL INDICATION: Bilateral leg pain and swelling. TECHNIQUE: Carlton scale with and without compression, color doppler, spectral doppler of the venous system of the bilateral lower extremities was performed. Venous augmentation maneuvers were utilized. COMPARISON: No prior studies are available for comparison. FINDINGS: RIGHT: Common femoral vein: Patent and compressible. Femoral vein: Patent and compressible. Popliteal vein: Patent and compressible. Visualized calf veins: Patent and compressible. Soft tissues: Normal LEFT: Common femoral vein: Patent and compressible. Femoral vein: Patent and compressible. Popliteal vein: Patent and compressible. Visualized calf veins: Patent and compressible. Soft tissues: Normal IMPRESSION: 1. No evidence of deep vein thrombosis. RPTAT: [facility] Physician [place] Date Time Electronically viewed and signed by Aleks Vasquez Physician on 05/03/2018 18:19 JH/ CC: NAGA PEREZ [id number] PROCEDURE: MR Brain with and without contrast. CLINICAL INDICATION: Confusion. History of ovarian cancer. TECHNIQUE: An MRI of the brain was performed on a high field scanner utilizing the following sequences: Sagittal and axial T1 weighted, axial T2 weighted, coronal GRE, , axial diffusion weighted (EPI technique d=[id number]), axial ADC mapping, and post contrast axial, sagittal, and coronal T1 weighted, and axial FLAIR. 10 cc of ProHance was given intravenously without complication. COMPARISON: CT head from 05/02/2018 FINDINGS: MRI BRAIN: No diffusion weighted abnormalities are seen to suggest the presence of acute ischemia or recent infarct. No susceptibility artifact is seen. There is no intracranial hemorrhage, mass effect, or midline shift. No extra-axial fluid collection is seen. The ventricles and sulci are normal in size and configuration. Mild to moderate nonspecific white matter disease in the periventricular and deep white matter is seen as well as in the subcortical white matter. The remainder of the signal intensity is normal throughout the cerebrum, brain stem and cerebellum. Probable arachnoid granulations are seen near the vertex. Normal flow voids are visible the proximal intracranial arteries and dural sinuses, indicating patency. The postcontrast images show no abnormal parenchymal, leptomeningeal, or dural enhancement. A retention cyst in the left maxillary sinus is seen. The remaining visualized paranasal sinuses are clear. The mastoid air cells are clear. The orbits and calvarium are unremarkable. IMPRESSION: 1. No acute intracranial pathology. 2. Mild to moderate nonspecific white matter disease which may be related to chronic microvascular ischemic disease. RPTAT: [facility] Physician [place] Date Time Electronically viewed and signed by Physician Dionicio on 05/03/2018 18:34 / CC: NAGA PEREZ [id number] Medications Medication Current Medications IV Flush (NS 3 ml) 3 ml PER PROTOCOL IV ; Start 05/02/18 at 05:30 Ondansetron HCl (Zofran Inj) 4 mg Q6H PRN IV NAUSEA/VOMITING; Start 05/02/18 at 05:30 Acetaminophen (Tylenol Tab) 650 mg Q6H PRN PO .PAIN 1-3 OR TEMP; Start 05/02/18 at 05:30 Heparin Sodium (Porcine) (Heparin (5000 Units/1ml)) 5,000 unit Q12 SC Last a dministered on 3/15/19at 09:16; Admin Dose 5,000 UNIT; Start 05/02/18 at 09:00 Albuterol/ Ipratropium (Duoneb) 3 ml Q2H RESP THERAPY PRN HHN SHORTNESS OF BREATH; Start 05/02/18 at 05:30 Sodium Chloride 1,000 ml @ 80 mls/hr [id number] IV Last administered on 05/03/18 06:12; Admin Dose 80 MLS/HR; Start 05/02/18 at 15:30 Atorvastatin Calcium (Lipitor) 40 mg QHS PO Last administered on 05/03/18 20: 30; Admin Dose 40 MG; Start 05/03/18 at 21:00 Levothyroxine Sodium (Synthroid) 150 mcg BEFORE BREAKFAST PO Last administered on 05/04/18 06:33; Admin Dose 150 MCG; Start 05/04/18 at 07:00 Metoprolol Tartrate (Lopressor) 25 mg BID PO Last administered on 05/04/18 09:10; Admin Dose 25 MG; Start 05/03/18 at 10:00 Lactulose (Enulose) 20 gm Q8 PO Last administered on 05/04/18 09:09; Admin Dose 20 GM; Start 05/04/18 at 07:00 NAGA PEREZ May 04, 2018 14:09
--- NOTE | 2018-05-04 14:14 | PDOCDIS ---
Discharge Instructions CONDITION [id number] Patient Condition: [id number] Stable HOME CARE INSTRUCTIONS: [id number] Diet Instructions: [id number] Regular ACTIVITY: [id number] Activity Restrictions: [id number] Slowly Increase Activity Rest between Activity FOLLOW UP/APPOINTMENTS Follow-up Plan Call Dr Borrego's office and reschedule your followup appointment Stay hydrated and take your meds as prescribed . NAGA PEREZ May 04, 2018 14:14
--- NOTE | 2018-05-04 14:44 | CONS ---
Assessment/Plan Assessment/Plan Hospital Course 57 F c/ Hx of ovarian Ca, on chemo...who presents for evaluation of progressive ams x >1 mo...for which neurology is consulted.. An acute toxic-metabolic encephalopathy is considered.. Encephalitis is less likely.. Chemotherapy-related neurotoxicity is a Dx of exclusion.. MRI brain is reassuringly without acute intracranial pathologu. UA/UDS neg TSH, B12 wnl CXR is unrevealing P: Await B1 Childs as necessary Limit sedating medications where possible PT/OT/ST as necessary Will follow clinically Consultation Date/Type/Reason Admit Date/Time May 02, 2018 at 03:01 Type of Consult Neurology Requesting Provider: NAGA PEREZ Date/Time of Note DATE: 05/04/18 TIME: 14:44 24 HR Interval Summary Free Text/Dictation Continues acute care. Exam Vital Signs Vitals Vital Signs Date Temp Pulse Resp B/P (MAP) Pulse Ox O2 O2 Flow FiO2 Time Delivery Rate 05/04/18 98.4 73 18 121/59 96 12:30 (79) 05/03/18 Room Air 07:14 05/02/18 2 00:46 Intake and Output 05/03/18 05/03/18 05/04/18 1515:00 23:00 07:00 IntakeIntake Total 1220 ml 180 ml BalanceBalance 1220 ml 180 ml Exam PE: Gen Appearance: No Apparent Distress HEENT: Normocephalic Cardiovascular: Regular rate Abdomen: Soft Extremities: Dry NE: The patient was awake, alert and oriented today. Somewhat disoriented. Able to follow simple axial and appendicular commands. Cranial nerve examination was limited by mental status. Pupils were equal and reactive to light. There was no afferent pupillary defect. Funduscopic examination was limited. Face was grossly symmetric, w/ present corneal and cough reflexes. Tone was normal. Muscle bulk was normal. I did not see fasciculations. The patient was antigravity in all extremities. Coordination and gait testing was limited by mental status. Arm and leg reflexes were within normal limits and symmetric. Ivan's sign was absent. Plantar responses were flexor. BARBARA CARDONA NP May 04, 2018 14:44 TOM RANDOLPH May 04, 2018 20:21
--- NOTE | 2018-05-04 14:54 | QN ---
Documentation Comment DC summary addendum Lactic acidosis could also be related to metformin use. d/c metformin for now NAGA PEREZ. May 04, 2018 14:54
[2018-05-04] MEDS ORDERED: LANT3I SC (14:56)
[2018-05-04] MEDS ORDERED: [UNRECOGNIZED DRUG - CODE] MC (14:56)
[2018-05-04] MEDS ORDERED: LACT20SO2 PO (14:56)
[2018-05-04] MEDS ORDERED: METO-448 PO (14:56)
--- NOTE | 2018-05-04 14:58 | PDOCDIS ---
Discharge Instructions CONDITION [id number] Patient Condition: [id number] Stable HOME CARE INSTRUCTIONS: [id number] Diet Instructions: [id number] Regular ACTIVITY: [id number] Activity Restrictions: [id number] Slowly Increase Activity Rest between Activity FOLLOW UP/APPOINTMENTS Follow-up Plan Call Dr Borrego's office and reschedule your followup appointment Stay hydrated and take your meds as prescribed Followup with your primary doctor as well within the next 1-2 weeks. If you don't have one please let someone know, we can give you resources that may help you pick one. Review your medication list with your nurse before leaving and if you need new prescriptions please let your nurse know. I may have made changes to your home medications or given you new prescriptions, please let your primary doctor know as well. Stay compliant with your medications and report any side effects to your PCP or pharmacist. Return to the ER if you have any concerns and cannot reach your doctors or call your insurance company, they usually have a nurse that can help you. . NAGA PEREZ May 04, 2018 14:58
--- NOTE | 2018-05-06 12:29 | DS ---
DATE OF ADMISSION: 05/02/2018 DATE OF DISCHARGE: 05/04/2018 FINAL DIAGNOSES: 1. Confusion, acute encephalopathy resolved. Findings were only for elevated ammonia levels, which the patient might have had hepatic encephalopathy from unclear cause. The patient was also mildly de hydrated on admission. 2. She has known ovarian cancer with peritoneal carcinomatosis and change in imaging. 3. Mild lactic acidosis: Cyclic secondary to dehydration, resolved. 4. Hypomagnesemia, status post repletion. . 5. Hypertension now on beta connor therapy. 6. tachycardia, which has resolved. 7. Chronic thrombocytopenia as well as hypochromic anemia, likely secondary to chronic cramping. CONSULTS ON THE CASE: Dr. Omalley and for neurology. INTERVENTIONS: Include a CT of the brain which was negative. MRI of the brain, CTA of the chest, up per pelvis with IV contrast that showed no PE. DISPOSITION: To home to follow up with her outpatient oncologist, Dr. Pruitt. Activities as tolerate d. She will be followed with home health. about 1 hour. DISCHARGE CONDITION: Stable. Please review the patient's chart. Dictated By: NAGA PEREZ MD, BA/WALLY Conf#: [id number] DID#: [id number]
== END 2018-05-04 19:10 | disposition home or self-care (01) | DRG 441 ==
LOC: E/R 21:54 → 6WM 05-02 03:01 → EDBEDREQ 05-02 05:40 → CANRESERV 05-02 12:18
PROVIDERS: ADMIT Internal Medicine; ATTEND Family Medicine
DX: K72.00 Acute and subacute hepatic failure without coma (principal); G92 Toxic encephalopathy; E87.1 Hypo-osmolality and hyponatremia; C56.9 Malignant neoplasm of unspecified ovary; E87.2 Acidosis; I10 Essential (primary) hypertension; D64.81 Anemia due to antineoplastic chemotherapy; D63.0 Anemia in neoplastic disease; D69.59 Other secondary thrombocytopenia; E89.0 Postprocedural hypothyroidism; R73.03 Prediabetes; E83.42 Hypomagnesemia; E86.0 Dehydration; R00.0 Tachycardia, unspecified
CPT/HCPCS: 36415; 70450; 70553; 71045; 71275; 74177; 80048; 80053; 80061; 80307; 81003; 82140; 82607; 82962; 83036; 83605; 83735; 84100; 84425; 84443; 84484; 85025; 85378; 87086; 87400; 92610; 93005; 93970; 97161; J1644; J2060; J7030; J7040; Q9967

== ENCOUNTER 2018-06-12 09:39 | Inpatient (IN) | payer BC ==
[~2018-06-12] VITALS: Ht 157.5 cm; Wt 60.0 kg
[~2018-06-12 09:39] MED LIST: ATOR40TA68 PO; LACT20SO2 PO; LANT3I SC; LEVO150T7 PO; METO-448 PO; PANT40TA4 PO; SPIR25TA PO; [UNRECOGNIZED DRUG - CODE] MC
[2018-06-12 09:46] VITALS: Ht 157.5 cm; Wt 60.0 kg
[2018-06-12] MEDS ORDERED: SOD CHLORIDE 0.9% 500 ML IV STA (10:34)
[2018-06-12] MEDS ORDERED: METF500T24 PO (11:20)
[2018-06-12] MEDS ORDERED: LANT3I SC (11:20)
[2018-06-12] MEDS ORDERED: NOVO3I SC (11:22)
[2018-06-12] MEDS ORDERED: SODIUM CHLORIDE 0.9% 1L BAG IV* STA (11:32)
[2018-06-12] MEDS ORDERED: CEFTRIAXONE 1 GM/50 ML (PMX) 50 ML IVPB ONE (12:00)
--- NOTE | 2018-06-12 12:05 | ERD ---
ER Documentation Chief Complaint Chief Complaint pt bib family with c/o being confused since 8am yesterday morning HPI This is a 57-year-old female with a past medical history of hypertension, diabetes, hypothyroidism, ovarian cancer status post resection, currently on chemotherapy last given 2 weeks ago who is presenting with concerns of confusion. The patient reportedly had a chemotherapy reaction previously and was diagnosed with encephalopathy. Family is concerned that this could be happening again. The patient has been more confused than is typical for her, beginning yesterday. Her confusion is waxing and waning. She is currently alert but only oriented x2. Typically she is oriented x3. The patient otherwise feels well. The patient denies feeling sick recently. The patient denies fever or chills. The patient has had no headache or vision changes. The patient does not endorse neck or back pain. The patient denies lightheadedness or dizziness. The patient has had no chest pain or trouble breathing. The patient denies nausea or vomiting. The patient denies abdominal pain. The patient denies changes to bowel movements or urination. The patient has had no focal deficits. The patient has had no weakness or numbness or tingling to the face or extremities. ROS All systems reviewed and are negative except as per history of present illness. Medications Home Meds Active Scripts Metoprolol Tartrate* (Lopressor*) 25 Mg Tab, 25 MG PO BID, #60 TAB 2 Refills Prov:NAGA PEREZ 05/04/18 Reported Medications Insulin Aspart* (Novolog Insulin Pen*) 100 Unit/Ml Soln, 0 SC WITH MEALS, EA SLIDING SCALE- NEEDED 06/12/18 Metformin Hcl* (Metformin Hcl*) 500 Mg Tablet, 500 MG PO WITH BREAKFAST DINNE, #60 TAB 06/12/18 Insulin Glargine* (Lantus*) 100 Unit/Ml Soln, 10 UNIT SC QHS, #1 VIAL 06/12/18 Atorvastatin* (Atorvastatin*) 40 Mg Tablet, 40 MG PO QHS, #30 TAB 05/02/18 Pantoprazole* (Pantoprazole*) 40 Mg Tablet.dr, 40 MG PO DAILY, TAB 05/02/18 Levothyroxine Sodium* (Levothyroxine Sodium*) 150 Mcg Tablet, 150 MCG PO BEFORE BREAKFAST, #30 TAB 05/02/18 Spironolactone* (Aldactone*) 25 Mg Tablet, 25 MG PO BID, #60 TAB 05/02/18 Discontinued Scripts Syring W-Ndl,Disp,Insul,0.3ML (ADVOCATE SYRINGES) 1 Each Disp.syrin, EACH MC DAILY for diabetes, #100 2 Refills Prov:NAGA PEREZ. 05/04/18 Insulin Glargine* (Lantus*) 100 Unit/Ml Soln, 7 UNIT SC DAILY, #3 VIAL Prov:NAGA PEREZ. 05/04/18 Lactulose* (Lactulose*) 20 Gm/30 Ml Solution, 20 GM PO DAILY for 30 Days, #900 ML Prov:NAGA PEREZ. 05/04/18 Allergies Allergies: Coded Allergies: No Known Allergy (Unverified , 06/12/18) PMhx/Soc History of Surgery: Yes (total hysterectomy 2010) Anesthesia Reaction: No Hx Neurological Disorder: No Hx Respiratory Disorders: No Hx Cardiac Disorders: Yes (Hypertension, diabetes) Hx Psychiatric Problems: No Hx Miscellaneous Medical Probl: Yes (Hypothyroidism) Hx Alcohol Use: No Hx Substance Use: No Hx Tobacco Use: No Smoking Status: Never smoker FmHx Family History: diabetes Physical Exam Vitals Vital Signs Date Temp Pulse Resp B/P (MAP) Pulse Ox O2 O2 Flow FiO2 Time Delivery Rate 06/12/18 Nasal 3 11:11 Cannula 06/12/18 97.0 112 18 199/97 100 09:46 (131) Physical Exam Const: No apparent distress, well-developed, well-nourished Head: Normocephalic, Atraumatic Eyes: Conjunctival pallor. Extraocular movements intact. Pupils equal, round and reactive to light ENT: Normal External Ears, Nose. Dry mucous membranes. Neck: Full range of motion. No meningismus. Resp: Clear to auscultation bilaterally, No wheezes, rales or rhonchi Cardio: Regular rhythm. Mild tachycardia. No murmurs, rubs or gallops Abd: Soft, non tender, non distended. Normal bowel sounds Skin: No petechiae or rashes Back: No midline tenderness. No CVA tenderness Ext: No cyanosis, or edema Neur: Awake and alert, oriented 2. Cranial nerves intact. No facial droop. Normal strength, sensation and coordination. Psych: Normal Mood and Affect Result Diagram: 06/12/18 1056 06/12/18 1056 Results 24 hrs Laboratory Tests Test 06/12/18 10:56 06/12/18 11:20 White Blood Count 3.7 10^3/ul Red Blood Count 3.40 10^6/ul Hemoglobin 9.4 g/dl Hematocrit 29.3 % Mean Corpuscular Volume 86.2 fl Mean Corpuscular Hemoglobin 27.6 pg Mean Corpuscular Hemoglobin Concent 32.1 g/dl Red Cell Distribution Width 17.2 % Platelet Count 114 10^3/UL Mean Platelet Volume 9.4 fl Immature Granulocytes % 0.300 % Neutrophils % 69.1 % Lymphocytes % 10.5 % Monocytes % 17.3 % Eosinophils % 1.4 % Basophils % 1.4 % Nucleated Red Blood Cells % 0.0 /100WBC Immature Granulocytes # 0.010 10^3/ul Neutrophils # 2.6 10^3/ul Lymphocytes # 0.4 10^3/ul Monocytes # 0.6 10^3/ul Eosinophils # 0.1 10^3/ul Basophils # 0.1 10^3/ul Nucleated Red Blood Cells # 0.0 10^3/ul Urine Color YELLOW Urine Clarity SLIGHTLY CLOUDY Urine pH 6.0 Urine Specific Garner 1.019 Urine Ketones 1+ mg/dL Urine Nitrite NEGATIVE mg/dL Urine Bilirubin NEGATIVE mg/dL Urine Urobilinogen 2+ mg/dL Urine Leukocyte Esterase 2+ Katja/ul Urine Microscopic RBC 1 /HPF Urine Microscopic WBC 7 /HPF Urine Bacteria FEW /HPF Urine Hemoglobin NEGATIVE mg/dL Urine Glucose NEGATIVE mg/dL Urine Total Protein NEGATIVE mg/dl Sodium Level 144 mmol/L Potassium Level 4.9 mmol/L Chloride Level 114 mmol/L Carbon Dioxide Level 18 mmol/L Anion Gap 12 Blood Urea Nitrogen 27 mg/dl Creatinine 0.94 mg/dl Est Glomerular Filtrat Rate mL/min > 60 mL/min Glucose Level 175 mg/dl POC Venous Lactate 2.5 mmol/L Calcium Level 10.0 mg/dl Total Bilirubin 1.4 mg/dl Direct Bilirubin 0.10 mg/dl Indirect Bilirubin 1.3 mg/dl Aspartate Amino Transf (AST/SGOT) 45 IU/L Alanine Aminotransferase (ALT/SGPT) 53 IU/L Alkaline Phosphatase 406 IU/L Ammonia 82 umol/l Total Protein 7.9 g/dl Albumin 3.9 g/dl Globulin 4.00 g/dl Albumin/Globulin Ratio 0.97 Free Thyroxine Index Pending Thyroxine (T4) Pending Triiodothyronine (T3) Uptake Pending Salicylates Level < 1.0 mg/dl Acetaminophen Level < 10.0 ug/ml Ethyl Alcohol Level < 10.0 mg/dl Bedside Glucose 162 mg/dL Current Medications Medications Dose Sig/Santana Start Time Status Last (Trade) Ordered Route PRN Stop Time Admin Dose Reason Admin Sodium 500 ml @ Q1H STAT 06/12/18 DC 06/12/18 Chloride 500 mls/hr IV 10:34 11:35 06/12/18 11:33 Ceftriaxone 50 ml @ ONCE ONCE 06/12/18 06/12/18 Sodium 100 mls/hr IVPB 12:00 11:44 06/12/18 12:29 Sodium 1,300 ml BOLUS OVER 2 06/12/18 DC 06/12/18 Chloride HOURS STAT 11:32 11:43 (NS) IV* 06/12/18 11:36 Procedures/MDM MDM The patient's presentation warrants further investigation. Previous medical records, if available, were reviewed. LABS The patient's laboratory testing was obtained and reviewed. No emergent treatment was required unless described below. CBC: Leukopenia, no neutropenia, potentially related to her chemotherapy regimen, but cannot definitively rule out a systemic infection. Normocytic anemia and thrombocytopenia evident as well. Chemistry: Non-anion gap metabolic acidosis. Elevated BUN with a BUN: Creatinine ratio of greater than 20: 1, concerning for dehydration. Mild indirect hyperbilirubinemia, likely related to hemolysis. Elevated alkaline phosphatase, potentially reactive. Lactate: E/o severe sepsis Urine: E/o acute infection without hematuria Tox: No E/o alcohol abuse. No E/o salicylate or acetaminophen use. TFTs: Pending Ammonia: Elevated EKG EKG read by me: Rate/Rhythm: Regular rate and rhythm at a rate of 99 beats per minute Intervals: Normal Julian: Normal Impression: No evidence of acute ischemia or arrhythmia IMAGING Imaging and Radiology interpretation reviewed. CXR FINDINGS: The heart and mediastinum are within normal limits. No discrete focal consolidation. There is no pleural effusion or pneumothorax. Right-sided central catheter tip terminates in cavoatrial junction. IMPRESSION: No acute cardiopulmonary process. Electronically viewed and signed by Naseem Doran Physician on 06/12/2018 11:16 CT Head FINDINGS: Hemorrhage: No evidence of intracranial hemorrhage. Acute ischemic changes: No evidence of acute ischemic changes. Mass effect: None. Parenchymal volume: Within normal limits for age. Ventricular system: Concordant with parenchymal volume. Chronic changes: Mild chronic-appearing microvascular ischemic changes of the supratentorial white matter. Atherosclerotic calcifications of the cavernous portions of both internal carotid arteries are present. Idiopathic appearing calcifications of the bilateral basal ganglia are present. Extracranial soft tissues: Unremarkable. Calvarium: No fractures. Paranasal sinuses: Visualized paranasal sinuses are clear. Mastoid air cells: Visualized mastoid air cells are clear. IMPRESSION: No acute intracranial abnormalities. Mild chronic-appearing microvascular ischemic changes of the supratentorial white matter are unchanged. MRI of the brain can be obtained for further evaluation. Electronically viewed and signed by Preston Gomez MD, on 06/12/2018 11:39 TREATMENT/DISPOSITION The patient presents with progressive altered mentation. The patient is afebrile, but she did present with tachycardia. She is leukopenic with an elevated lactic acid. She also has a source and a UTI. There is consideration for sepsis. A septic workup was completed. Cultures were sent off. The patient will be treated with IV fluids and antibiotics. The patient's lactic acid could be related to her chronic morbidities. The patient does appear dehydrated with an elevated BUN. She will benefit from IV fluid resuscitation. The patient's ammonia is slightly elevated, which could potentially be another cause of her encephalopathy. I do not immediately initiate lactulose in the emergency department. The patient does have a history of hypothyroidism. Thyroid studies were sent off. The patient is anemic and thrombocytopenic, but this appears at her baseline based on previous studies from earlier this year. SEPSIS NOTE SIRS Criteria: Tachycardia, leukopenia Infectious source: UTI End organ damage indicated by: Lactate > 2.0 mmol/L SEPSIS MANAGEMENT Time to recognize sepsis: 11:30AM Time to recognize severe sepsis: 11:30AM Time to recognize septic shock: No septic shock at this time. 3 HOUR BUNDLE Blood cultures x 2 before abx: Yes 30 ml/kg NS bolus completed Initial lactate 2.5 Repeat lactate Pending SEPTIC SHOCK ASSESSMENT: NO lactic acid > 4.0 NO persistent hypotension (SBP < 90 or 40 mmHg drop, MAP < 65) despite 30 L/kg IV fluid bolus CRITICAL CARE Critical care time 35 minutes Emergent fluid management while maintaining close respiratory support. Provision of immediate and broad-spectrum antibiotic therapy. Simultaneous assessment for possible sources in order to direct targeted therapy. Consideration for invasive and chemical support to prevent cardiopulmonary collapse. Critical care time is independent of procedures performed. ADMISSION The patient will be admitted to Dr. Bear in accordance with the patient's insurance. The patient was accepted to telemetry at 11:50 AM on June 12, 2018. Disclaimer: Inadvertent spelling and grammatical errors are likely due to EHR/dictation software use and do not reflect on the overall quality of patient care. Note that the electronic time recorded on this note does not necessarily reflect the actual time of the patient encounter. Departure Diagnosis: Primary Impression: Severe sepsis Additional Impressions: UTI (urinary tract infection) Urinary tract infection type: acute cystitis Hematuria presence: without hematuria Qualified Codes: N30.00 - Acute cystitis without hematuria Tachycardia Lactic acidosis Normocytic anemia Thrombocytopenia Dehydration Metabolic acidosis Elevated BUN Indirect hyperbilirubinemia Elevated alkaline phosphatase level Hyperammonemia Encephalopathy History of hypothyroidism Leukopenia Leukopenia type: unspecified Qualified Codes: D72.819 - Decreased white blood cell count, unspecified Condition: Serious LYDIA GRIMES MD Jun 12, 2018 12:04
[2018-06-12] MEDS ORDERED: ONDANSETRON 4 MG INJ IV PRN (12:30)
[2018-06-12] MEDS ORDERED: ACETAMINOPHEN 325 MG TAB PO PRN (12:30)
[2018-06-12] MEDS ORDERED: hydrALAzine 20 MG INJ IV PRN (13:30)
[2018-06-12 14:44] VITALS: BP 145/67; PULSE 81; RESP 17
[2018-06-12] MEDS ORDERED: GLUCOSE GEL 15 GRAM TUBE BUCCAL PRN (15:00)
[2018-06-12] MEDS ORDERED: GLUCAGON 1 MG INJ IM PRN (15:00)
[2018-06-12] MEDS ORDERED: DEXTROSE 50% 50 ML SYRINGE IV PRN ×2 (15:00)
[2018-06-12] MEDS ORDERED: GLUCOSE GEL 15 GRAM TUBE PO PRN ×2 (15:00)
--- NOTE | 2018-06-12 15:44 | HP ---
DATE OF ADMISSION: 06/12/2018 ADMITTING DIAGNOSES: 1. Urinary tract infection. 2. Altered mental status. HISTORY OF PRESENT ILLNESS: The patient is a 57-year-old female with type 2 diabetes, metasta tic ovarian cancer, hypertension and hypothyroidism, who was brought to the emergency room by family. The patient's family noted that over the last 24 hours the patient has been acting strange, confuse d at times and even put on 2 different shoes earlier today. The patient is having some chills, but tana rodríguezmatt was having no noted fever or any significant abdominal pain or change in her overall status per the patient. The patient's family noted ongoing strange behaviors and they spoke with me this mo rning and I sent them to the emergency room. In the emergency room, the patient was found to have an ammonia level of 82 with an elevated lactic acid and clinical evidence of dehydration. The patient was given IV Rocephin, IV fluid bolus in the emergency room with some improvement in her mentation. REVIEW OF SYSTEMS: No fevers, no nausea, no vomiting. There has been decreased appetite. No chest pain, no shortness of breath, no cough, no dysuria, no increased urinary frequency, no swelling, no h eadache, no dizziness. PAST MEDICAL HISTORY: Significant for: 1. Metastatic ovarian cancer, status post multiple different courses of chemotherapy. 2. History of thyroid cancer, status post thyroidectomy. 3. Hypertension. 4. Type 2 diabetes. 5. Hyperlipidemia. 6. Hypothyroidism. PAST SURGICAL HISTORY: Status post thyroidectomy. FAMILY HISTORY: Father with diabetes, end-stage renal disease, coronary artery disease. SOCIAL HISTORY: The patient lives with her father. No tobacco, no alcohol use. MEDICATIONS: 1. Levothyroxine 150 mcg daily. 2. Pantoprazole 40 mg daily. 3. Metoprolol tartrate 25 mg b.i.d. 4. Spironolactone 25 mg b.i.d. 5. Humalog 10 units daily. 6. Lantus 10 units at bedtime. 7. Atorvastatin 40 mg daily. PHYSICAL EXAMINATION: VITAL SIGNS: Temperature 97.8, pulse 93, blood pressure 153/73 and oxygen saturation 100% on 3-liter nasal cannula, but on presentation to the emergency room, the patient had a temperature of 97, pulse of 112, respiratory rate of 18, blood pressure 199/97 with oxygen saturation 100%. SKIN: No rashes, but moderate pallor. GENERAL: This is a well-developed female, ill appearing, lying on gurney. HEENT: EOMI, PERRLA. Oropharynx is clear. NECK: No jugular venous distention. A 2+ carotid upstroke. No thyromegaly. Well-healed anterior n stan scar. LUNGS: Clear to auscultation bilaterally. HEART: Tachycardic with regular. No murmurs, gallops or rub noted. ABDOMEN: Mild lower abdominal tenderness. Normoactive bowel sounds. No hepatosplenomegaly. GENITOURINARY: Deferred at this time. EXTREMITIES: No cyanosis, clubbing or edema, 2+ pulses throughout. NEUROLOGIC: The patient is alert and oriented to name only and location. She does not know the date , but does know the president; otherwise, nonfocal. LABORATORY EXAMINATION: Lactic acid level 2.5 and on repeat 2.5. Sodium 144, potassium 4.9, chlorid e 114, bicarbonate 18, BUN 27, creatinine 0.94, glucose 175. Total bilirubin 1.4, AST 45, ALT of 53, alkaline phosphatase 406. Ammonia level of 82. Albumin 3.9. Thyroid studies are pending at the ti me of this dictation. White blood cell count 3.7, hematocrit 29.3, hemoglobin 9.4, platelets 114. T ox screen is negative. Urinalysis is slightly cloudy with 1+ ketones, negative nitrite, 2+ leukocyte esterase, 1 red blood cell, 7 white blood cells, few bacteria. IMAGING STUDIES: Chest x-ray shows no acute disease. CT scan of the brain without contrast shows mi ld chronic appearing microvascular ischemic changes that are unchanged; otherwise negative. ASSESSMENT AND PLAN: The patient is a 57-year-old female with metastatic ovarian cancer, type 2 diabetes, hypothyroidism, hypertension, who presents to the emergency room with altered mental sta tus. The patient was found to be dehydrated, also with elevated ammonia level as per her last admiss ion and evidence of possible urinary tract infection. The patient was given IV fluid bolus in the em ergency room for sepsis protocol as well as IV Rocephin. The patient was admitted for further care. 1. Altered mental status, likely toxic metabolic encephalopathy, also related with the ammonia being elevated. We will give lactulose twice a day, IV hydration and follow ammonia levels. We will cont inue hydration as well. 2. Urinary tract infection with possible sepsis. The patient with elevated heart rate, elevated lac tic acid level, altered mental status, consider possible sepsis versus systemic inflammatory response syndrome. The patient will be given IV fluids as well as IV antibiotics and we will follow these nu mbers. The patient will be admitted to med/surg for further care. 3. Diabetes. The patient is not eating much right now, so we will give dose sliding scale insulin o nly at this point and check sugars before meals and at bedtime. 4. Hypothyroidism. Continue with the patient's levothyroxine. 5. Hypertension. We will continue the patient's metoprolol but hold her diuretic as she is dehydrat ed. 6. Hyperlipidemia. We will continue the patient's atorvastatin. 7. Gastroesophageal reflux disease. We will continue the patient's pantoprazole. Dictated By: GRECIA ANDERSON MD, SR/WALLY Conf#: [id number] DID#: [id number]
[2018-06-12] MEDS: SOD CHLORIDE 0.9% 1,000 ML IV SCH ×2 (17:35→20:56)
[2018-06-12] MEDS: INSULIN ASPART [NOVOLOG] 3 ML PEN SC SCH ×2 (17:51→20:15)
[2018-06-12] MEDS: LACTULOSE 30ML CUP PO SCH (20:12)
[2018-06-12 20:30] VITALS: BP 141/71; PULSE 90; RESP 20
[2018-06-13] MEDS: SOD CHLORIDE 0.9% 1,000 ML IV SCH ×4 (02:05→21:23)
[2018-06-13 02:30] VITALS: BP 144/64; PULSE 87; RESP 19
[2018-06-13] MEDS: PANTOPRAZOLE (EC) 40 MG TAB PO SCH (05:56)
[2018-06-13] MEDS ORDERED: MAGNESIUM SULFATE 3 GM in DEXTROSE 5% 100 ML IVPB ONE (07:30)
[2018-06-13] MEDS: INSULIN ASPART [NOVOLOG] 3 ML PEN SC SCH ×4 (07:58→21:21)
[2018-06-13 07:59] VITALS: BP 149/72; PULSE 79; RESP 18
--- NOTE | 2018-06-13 08:06 | PN ---
DATE: 06/13/2018 SUBJECTIVE: The patient is feeling better without complaint. OBJECTIVE: VITAL SIGNS: Temperature 98.3, pulse 87, respirations 19, blood pressure 144/64, oxygen saturation 9 7% on room air. GENERAL: Well-developed female in no acute distress, sitting up in bed. LUNGS: Clear to auscultation bilaterally. HEART: Regular rate and rhythm. ABDOMEN: Soft, nontender, normoactive bowel sounds. EXTREMITIES: No cyanosis, clubbing or edema. NEUROLOGIC: Nonfocal. The patient is alert and oriented x3. LABORATORY DATA: Lactic acid is 2.0 at the last time done, magnesium 1.2. Alkaline phosphatase 300. Ammonia level 58. Free T4 of 1.95, TSH of 0.019, albumin 3.1, calcium 8.3. Sodium 143, potassium 4.1, chloride 119, bicarbonate 17, BUN 19, creatinine 0.74. White blood cell count 3.7, hemoglobin 8 .2, hematocrit 26.0, platelets 106. ASSESSMENT AND PLAN: 1. Altered mental status. The patient is with toxic metabolic encephalopathy secondary to elevated ammonia level and urinary tract infection. The patient is with no further lactic acidosis and resolv ed with hydration and holding her metformin. We will continue to monitor the ammonia levels. Contin ue hydration and recheck lactic acid level tomorrow morning. We will also recheck ammonia levels. W e will also continue on lactulose b.i.d. 2. Urinary tract infection, stable. Continue with antibiotics. 3. Diabetes, stable. Continue with sliding scale insulin. The patient continued her metformin desp ite being told to discontinue it after her last hospitalization. We will make sure the patient does not restart this due to her recurrent lactic acidosis. 4. Hypertension, stable. Continue with medications. 5. Hypothyroidism, stable. Continue with current medications, as the patient needs to on suppressiv e doses due to her history of cancer. Dictated By: GRECIA ANDERSON MD SR/NTS Conf#: [id number] DID#: [id number] CC: GRECIA ANDERSON MD;*EndCC*
[2018-06-13] MEDS: LEVOTHYROXINE 150 MCG TAB PO SCH (09:02)
[2018-06-13] MEDS: ATORVASTATIN 40 MG TAB PO SCH (09:02)
[2018-06-13] MEDS: LACTULOSE 30ML CUP PO SCH ×2 (09:03→21:17)
[2018-06-13] MEDS: CEFTRIAXONE 1 GM/50 ML (PMX) 50 ML IVPB SCH (12:56)
[2018-06-13 14:00] VITALS: BP 138/67; PULSE 92; RESP 17
[2018-06-13] MEDS: ONDANSETRON 4 MG INJ IV PRN ×2 (17:45→21:55)
[2018-06-13 20:25] VITALS: BP 145/66; PULSE 84; RESP 18
[2018-06-14 02:16] VITALS: BP 129/69; PULSE 81; RESP 18
[2018-06-14] MEDS: PANTOPRAZOLE (EC) 40 MG TAB PO SCH (05:30)
[2018-06-14] MEDS: SOD CHLORIDE 0.9% 1,000 ML IV SCH ×2 (05:31→16:37)
[2018-06-14 07:53] VITALS: BP 158/70; PULSE 76; RESP 17
[2018-06-14] MEDS: INSULIN ASPART [NOVOLOG] 3 ML PEN SC SCH ×4 (08:00→20:59)
[2018-06-14] MEDS: LACTULOSE 30ML CUP PO SCH ×2 (08:28→20:58)
[2018-06-14] MEDS: ATORVASTATIN 40 MG TAB PO SCH (08:28)
[2018-06-14] MEDS: LEVOTHYROXINE 150 MCG TAB PO SCH (08:28)
[2018-06-14] MEDS: ACETAMINOPHEN 325 MG TAB PO PRN ×2 (08:33→17:26)
--- NOTE | 2018-06-14 08:37 | PN ---
DATE: 06/14/2018 SUBJECTIVE: The patient has mild headache, not one of her migraines, though. The patient also had s ome bleeding gums last night and threw up x1 yesterday after drinking lactulose. OBJECTIVE: VITAL SIGNS: Temperature 98.5, pulse of 81, respirations 18, blood pressure 129/69, oxygen saturatio n 100% on room air. GENERAL: Well-developed female in no acute distress, sitting up in bed. LUNGS: Clear to auscultation bilaterally. HEART: Regular rate and rhythm. ABDOMEN: Soft, nontender. NEUROLOGIC: Nonfocal. Patient is alert and oriented x4. LABORATORY DATA: Sodium is 140, potassium 4.0, chloride 116, bicarbonate 17, creatinine 0.68, BUN of 12. Lactic acid 1.1, glucose 104, magnesium 1.8. Alkaline phosphatase is 316, platelet count 103. White blood cell count 4.0, hemoglobin 8.1, hematocrit 26.4. ASSESSMENT AND PLAN 1. Toxic metabolic encephalopathy. The patient continues to improve. Ammonia level is pending at t he time of this dictation. We will continue with lactulose and if continues to decrease, will decrea se the lactulose to once daily. Continue to monitor. We will continue on hydration. 2. Pancytopenia, stable. Continue to monitor, but no need for intervention. 3. Diabetes, stable. Continue with diet and sliding scale and Lantus. 4. Hypertension, stable. Continue with meds and diet. 5. Urinary tract infection with sepsis. The patient continues on antibiotics. Blood cultures have been negative and she remains afebrile with normal white blood cell count. We will continue with IV antibiotics and roving changer to oral antibiotics at the time of discharge. Dictated By: GRECIA ANDERSON MD SR/NTS Conf#: [id number] DID#: [id number]
[2018-06-14] MEDS ORDERED: MAGNESIUM SULFATE 2 GM/50 ML 50 ML IVPB ONE (09:00)
[2018-06-14] MEDS: CEFTRIAXONE 1 GM/50 ML (PMX) 50 ML IVPB SCH (12:25)
[2018-06-14 14:39] VITALS: BP 122/58; PULSE 95; RESP 18
[2018-06-14 20:30] VITALS: BP 140/63; PULSE 95; RESP 18
[2018-06-15] MEDS: SOD CHLORIDE 0.9% 1,000 ML IV SCH ×3 (00:04→09:40)
[2018-06-15 02:45] VITALS: BP 158/74; PULSE 94; RESP 16
[2018-06-15] MEDS: PANTOPRAZOLE (EC) 40 MG TAB PO SCH (05:31)
[2018-06-15] MEDS: INSULIN ASPART [NOVOLOG] 3 ML PEN SC SCH ×2 (08:00→11:59)
--- NOTE | 2018-06-15 08:05 | PDOCDIS ---
Discharge Instructions DIAGNOSIS Discharge Diagnosis UTI with sepsis; Toxic metabolic encephalopathy CONDITION [id number] Patient Condition: [id number] Good HOME CARE INSTRUCTIONS: [id number] Special Diet: [id number] Activity Restrictions: [id number] Slowly Increase Activity FOLLOW UP/APPOINTMENTS Follow-up Plan Follow up with Dr. Bear as scheduled SCHOOL/WORK RELEASE May return to School/Work on: June 25, 2018 GRECIA BEAR MD- Jun 15, 2018 08:05
[2018-06-15] MEDS ORDERED: LEVO500T48 PO (08:07)
[2018-06-15] MEDS: ATORVASTATIN 40 MG TAB PO SCH (08:18)
[2018-06-15] MEDS: LACTULOSE 30ML CUP PO SCH (08:18)
[2018-06-15] MEDS: LEVOTHYROXINE 150 MCG TAB PO SCH (08:18)
[2018-06-15 08:26] VITALS: BP 159/70; PULSE 82; RESP 18
--- NOTE | 2018-06-15 09:24 | PN ---
DATE: 06/15/2018 SUBJECTIVE: The patient is feeling better without complaint. OBJECTIVE: VITAL SIGNS: Temperature 98.3, pulse 94, respirations 16, blood pressure 150/74, oxygen saturation 9 9% on room air. GENERAL: Well-developed female in no acute distress, sitting up in bed. LUNGS: Clear to auscultation bilaterally. HEART: Tachycardic, but regular. ABDOMEN: Soft, nontender. NEUROLOGIC: Nonfocal. The patient is alert and oriented x4. LABORATORY DATA: Pending at the time of this dictation yesterday. Yesterday's ammonia level was 12. ASSESSMENT AND PLAN: 1. Type toxic metabolic encephalopathy, improved with using lactulose. Diet and ammonia levels now normalized. The patient is stable for discharge to home. 2. Urinary tract infection with sepsis, improved. We will continue with antibiotics as an outpatien t for the next 5 days and discharge the patient on Levaquin. 3. Diabetes, stable. We will discharge patient on her Lantus and NovoLog, but hold her metformin as she was supposed to have stopped this after the last hospitalization. 4. Hypertension, mildly elevated, but the patient has been off routine medications. Will discharge patient on her spironolactone. 5. Metastatic ovarian cancer. The patient is to follow up with her oncologist next week for probabl e chemotherapy. DISCHARGE PLANS: The patient will follow up with Dr. Bear as scheduled. Dictated By: GRECIA BEAR MD SR/NTS Conf#: [id number] DID#: [id number]
[2018-06-15] MEDS ORDERED: MAGNESIUM SULFATE 2 GM/50 ML 50 ML IVPB ONE (11:00)
[2018-06-15] MEDS: CEFTRIAXONE 1 GM/50 ML (PMX) 50 ML IVPB SCH (11:11)
[2018-06-15 14:49] VITALS: BP 139/71; PULSE 92; RESP 18
== END 2018-06-15 14:50 | disposition home or self-care (01) | DRG 871 ==
LOC: E/R 09:39 → PP2 12:06
PROVIDERS: ADMIT Internal Medicine; ATTEND Internal Medicine
DX: A41.9 Sepsis, unspecified organism (principal); G92 Toxic encephalopathy; D61.818 Other pancytopenia; N39.0 Urinary tract infection, site not specified; C56.9 Malignant neoplasm of unspecified ovary; C79.9 Secondary malignant neoplasm of unspecified site; E11.8 Type 2 diabetes mellitus with unspecified complications; I10 Essential (primary) hypertension; K21.9 Gastro-esophageal reflux disease without esophagitis; E03.9 Hypothyroidism, unspecified
CPT/HCPCS: 36415; 70450; 71045; 80053; 80307; 81001; 82140; 82150; 82962; 83605; 83690; 83735; 84436; 84439; 84443; 84479; 84481; 85025; 93005; 96374; J0696; J1815; J2405; J3475; J7030; J7040